=== PATIENT | male | born 1970 | race Caucasian/White ===

== ENCOUNTER 2017-04-14 02:20 | Observation (INO) | payer MEDICARE, MEDICAID ==
--- NOTE | 2017-04-14 03:35 | EDM.PDOC ---
ED HPI GENERAL MEDICAL PROBLEM - General Chief Complaint: General Stated Complaint: loss of conciousness Time Seen by Provider: 04/14/17 03:00 Source of Information: Reports: Patient, Family - History of Present Illness INITIAL COMMENTS - FREE TEXT/NARRATIVE: This is a 47yo M with history of severe CHF, severe pulmonary HTN, Renal dysfunction, and multiple other health issues here for recent episodes of syncope. His last episode he fell while going to the bathroom and does not recall falling. He was brought in via EMS as he had difficulty standing on his own and was confused. states he has been progressively worse and weaker. He does use his walker 90% of the time. Patient unable to stand on his own two feet after the fall today. Onset: Gradual Duration: Getting Worse Location: Reports: Generalized Severity: Moderate Improves with: Reports: None Worsens with: Reports: None Associated Symptoms: Reports: Weakness Generalized Pain Score (Numeric/FACES): 0 - Related Data Allergies Allergy/AdvReac Type Severity Reaction Status Date / Time No Known Allergies Allergy Verified 04/14/17 04:04 Home Meds: Home Meds Albuterol [Ventolin HFA] 1 puff .XX Q4H PRN 04/14/17 [History] Allopurinol [Zyloprim] 100 mg PO BID 04/14/17 [History] Benzonatate 100 mg PO TID 04/14/17 [History] Bisacodyl [Dulcolax] 5 mg PO DAILY PRN 04/14/17 [History] Cyanocobalamin (Vitamin B-12) [B-12] 1,000 mcg PO DAILY 04/14/17 [History] Ferrous Sulfate [Iron] 325 mg PO BID 04/14/17 [History] Fluticasone/Salmeterol [Advair 250-50 Diskus] 2 inh PO BID 04/14/17 [History] Gabapentin [Neurontin] 300 mg PO DAILY 04/14/17 [History] Hydrocodone/Acetaminophen [Hydrocodon-Acetaminophen 5-325] 1 tab PO Q4H PRN 06/21 [History] Ipratropium/Albuterol Sulfate [Iprat-Albut 0.5-3(2.5) mg/3 ml] 3 ml IH Q6H PRN 04/14/17 [History] Melatonin 6 mg PO BEDTIME 04/14/17 [History] Metolazone 5 mg PO .MON .FRI 04/14/17 [History] Midodrine 15 mg PO TIDAC 04/14/17 [History] Pantoprazole Sodium 40 mg PO DAILY 04/14/17 [History] Potassium Chloride [K-Tab] 40 meq PO TID 04/14/17 [History] Selexipag [Uptravi] 1,000 mcg PO BEDTIME 04/14/17 [History] Selexipag [Uptravi] 800 mcg PO ACBREAKFAST 04/14/17 [History] Sertraline HCl 12.5 mg PO DAILY 04/14/17 [History] Sildenafil [Revatio] 40 mg PO TID 04/14/17 [History] Torsemide 100 mg PO BID 04/14/17 [History] Warfarin [Coumadin] 2 mg PO DAILY 04/14/17 [History] atorvaSTATin Calcium [Atorvastatin Calcium] 40 mg PO DAILY 04/14/17 [History] traMADol HCl [Tramadol HCl] 50 mg PO BID PRN 04/14/17 [History] ED ROS GENERAL - Review of Systems Review Of Systems: ROS reveals no pertinent complaints other than HPI. ED EXAM, GENERAL - Physical Exam Exam: See Below Exam Limited By: No Limitations General Appearance: No Apparent Distress, Obtunded, Thin Eye Exam: Bilateral Eye: EOMI, PERRL Ears: Normal External Exam Nose: Normal Inspection Throat/Mouth: Normal Inspection Head: Atraumatic, Normocephalic Neck: Normal Inspection Respiratory/Chest: No Respiratory Distress, Lungs Clear, Normal Breath Sounds Cardiovascular: Systolic Murmur, Irregularly Irregular Peripheral Pulses: 4+: Posterior Tibial (L), Posterior Tibial (R), Dorsalis Pedis (L), Dorsalis Pedis (R) GI/Abdominal: Normal Bowel Sounds Extremities: Pedal Edema Neurological: Alert, Oriented, Inattentive Psychiatric: Flat Affect Skin Exam: Warm, Dry, Intact Course - Vital Signs Last Recorded V/S: Last Vital Signs Temp 37.1 C 04/14/17 08:19 Pulse 88 04/14/17 08:19 Resp 18 04/14/17 08:19 BP 88/56 L 04/14/17 08:19 Pulse Ox 97 04/14/17 08:19 - Orders/Labs/Meds Orders: Active Orders 24 hr Category Date Time Status Patient Status [ADT] Routine ADT 04/14/17 04:21 Active EKG Documentation Completion [RC] ASDIRECTED Care 04/14/17 03:52 Active Height and Weight [RC] DAILY Care 04/14/17 04:21 Active Intake and Output [RC] Q12H Care 04/14/17 04:23 Active Oxygen Therapy [RC] Q12H Care 04/14/17 04:21 Active Telemetry Monitoring [Cardiac Monitoring] [RC] Q12H Care 04/14/17 04:23 Active Vital Signs [RC] Q4H Care 04/14/17 04:21 Active Heart Healthy Diet [DIET] Diet 04/14/17 Breakfast Ordered C3,C4 [REF] Stat Lab 04/14/17 03:25 Received Dextrose 5%-0.9% NaCl [Dextrose 5%-Normal Saline] 1,000 Med 04/14/17 04:15 Active ml IV ASDIRECTED Lactulose [Chronulac] Med 04/14/17 05:00 Active 10 gm PO BID MVI, Adult with Vitamin K [Infuvite Adult] 10 ml Med 04/14/17 08:30 Active Thiamine [Vitamin B-1] 100 mg Folic Acid 1 mg Magnesium Sulfate [Magnesium Sulfate 50%] 3 gm Sodium Chloride 0.9% [Normal Saline] 1,000 ml IV ASDIRECTED Sodium Chloride 0.9% [Normal Saline] 1,000 ml Med 04/14/17 04:00 Active IV ASDIRECTED Code Status [Resuscitation Status] Stat Resus Stat 04/14/17 04:23 Ordered EKG 12 Lead [EK] Routine Ther 04/14/17 03:10 Ordered Medication Orders Hydrocodone Bitart/Acetaminophen ([place] 325-5 Mg) 1 tab PO Q4H PRN PRN Reason: Pain Albuterol (Ventolin Hfa) gm INH Q4H PRN PRN Reason: Shortness of Breath Albuterol/Ipratropium (Duoneb 3.0-0.5 Mg/3 Ml) 3 ml INH Q6H PRN PRN Reason: Shortness of Breath Allopurinol (Zyloprim) 100 mg PO BID DENISSE Atorvastatin Calcium (Lipitor) 40 mg PO BEDTIME DENISSE Benzonatate (Tessalon Perles) 100 mg PO TID DENISSE Cyanocobalamin (Vitamin B12) 1,000 mcg PO DAILY DENISSE Ferrous Sulfate (Ferrous Sulfate) 325 mg PO BID DENISSE Gabapentin (Neurontin) 600 mg PO BEDTIME DENISSE Sodium Chloride (Normal Saline) 1,000 mls @ 999 mls/hr IV ASDIRECTED DENISSE Last Admin: 04/14/17 03:54 Dose: 999 mls/hr Dextrose/Sodium Chloride (Dextrose 5%-Normal Saline) 1,000 mls @ 75 mls/hr IV ASDIRECTED DENISSE Last Admin: 04/14/17 05:09 Dose: 75 mls/hr Multivitamins/Minerals 10 ml/Thiamine HCl 100 mg/ Folic Acid 1 mg/ Magnesium Sulfate 3 gm/ Sodium Chloride 1,017.2 mls @ 75 mls/hr IV ASDIRECTED COUNT INCLUDES THE [facility] Last Admin: 04/14/17 09:50 Dose: 75 mls/hr Lactulose (Chronulac) 10 gm PO BID DENISSE Last Admin: 04/14/17 08:15 Dose: 10 gm Admin: 04/14/17 05:04 Dose: 10 gm Melatonin (Melatonin) 6 mg PO BEDTIME DENISSE Metolazone (Zaroxolyn) 5 mg PO .MON .FRI DENISSE (Midodrine [ (Midodrine] 15 Mg)) 15 mg PO TIDAC DENISSE (Torsemide [ (Torsemide] 100 Mg)) 100 mg PO BID COUNT INCLUDES THE [facility] Non-Formulary Medication (Nf Drug) 1 each INH QID COUNT INCLUDES THE [facility] Pantoprazole Sodium (Protonix) 40 mg PO BID COUNT INCLUDES THE [facility] Potassium Chloride (Klor-Con 10) 40 meq PO TID COUNT INCLUDES THE [facility] Quetiapine Fumarate (Seroquel) 12.5 mg PO BEDTIME COUNT INCLUDES THE [facility] Fluticasone/Salmeterol (Advair Diskus 250-50) 2 puff INH BID PRN PRN Reason: Shortness of Breath Sertraline HCl (Zoloft) 12.5 mg PO BEDTIME COUNT INCLUDES THE [facility] Sildenafil Citrate (Revatio) 40 mg PO TID COUNT INCLUDES THE [facility] Tramadol HCl (Ultram) 50 mg PO BID PRN PRN Reason: Pain Warfarin Sodium (Coumadin) 2 mg PO DAILY@1600 COUNT INCLUDES THE [facility] Labs: Laboratory Tests 04/14/17 04/14/17 04/14/17 Range/Units 03:25 03:25 03:25 WBC 2.5 L (4.0-11.0) K/uL RBC 2.92 L (4.50-6.50) M/uL Hgb 9.0 L (13.0-18.0) g/dL Hct 27.1 L (40.0-54.0) % MCV 93 (76-96) fL MCH 30.8 (27.0-32.0) pg MCHC 33.2 (31.0-35.0) g/dL RDW 21.0 H (11.0-16.0) % Plt Count 106 L (150-400) K/uL MPV 10.9 H (6.0-10.0) fL Neut % (Auto) 61.6 (45.0-70.0) % Lymph % (Auto) 20.8 (20.0-40.0) % [place] % (Auto) 12.4 H (3.0-10.0) % Eos % (Auto) 4.4 (1.0-5.0) % Baso % (Auto) 0.8 H (0.0-0.5) % Neut # (Auto) 1.54 L (2.00-7.50) K/uL Lymph # (Auto) 0.52 L (1.50-4.00) K/uL [place] # (Auto) 0.31 (0.20-0.80) K/uL Eos # (Auto) 0.11 (0.04-0.40) K/uL Baso # (Auto) 0.02 (0.02-0.10) K/uL PT (9.0-11.5) sec INR (1.0-3.5) VBG pH (7.31-7.41) Sodium 136 (136-145) mmol/L Potassium 3.7 D (3.5-5.1) mmol/L Chloride 99 (98-107) mmol/L Carbon Dioxide 28.5 (21.0-32.0) mmol/L Anion Gap 12.2 (5.0-15.0) mmol/L BUN 60 H* D (8-26) mg/dL Creatinine 2.52 H (0.70-1.30) mg/dL Est Cr Clr Drug Dosing TNP Estimated GFR (MDRD) 28 L (>60) MLS/MIN BUN/Creatinine Ratio 23.8 (6-25) Glucose 99 (74-100) mg/dL Uric Acid (2.6-7.2) mg/dL Calcium 8.2 L (8.5-10.1) mg/dL Total Bilirubin 1.4 H (0.0-1.0) mg/dL AST 19 (15-37) U/L ALT 11 L (12-78) U/L Alkaline Phosphatase 330 H (46-116) U/L Ammonia (11-32) umol/L Troponin I 0.044 D (0.000-0.060) ng/mL C-Reactive Protein 3.6 H (0.0-3.0) mg/L B-Natriuretic Peptide 90812 H (0-125) pg/mL Total Protein 6.8 (6.4-8.2) g/dL Albumin 2.9 L (3.4-5.0) g/dL Globulin 3.9 (2.2-4.2) g/dL Albumin/Globulin Ratio 0.7 L (0.8-2.0) 04/14/17 04/14/17 04/14/17 Range/Units 03:25 03:25 03:27 WBC (4.0-11.0) K/uL RBC (4.50-6.50) M/uL Hgb (13.0-18.0) g/dL Hct (40.0-54.0) % MCV (76-96) fL MCH (27.0-32.0) pg MCHC (31.0-35.0) g/dL RDW (11.0-16.0) % Plt Count (150-400) K/uL MPV (6.0-10.0) fL Neut % (Auto) (45.0-70.0) % Lymph % (Auto) (20.0-40.0) % [place] % (Auto) (3.0-10.0) % Eos % (Auto) (1.0-5.0) % Baso % (Auto) (0.0-0.5) % Neut # (Auto) (2.00-7.50) K/uL Lymph # (Auto) (1.50-4.00) K/uL [place] # (Auto) (0.20-0.80) K/uL Eos # (Auto) (0.04-0.40) K/uL Baso # (Auto) (0.02-0.10) K/uL PT 36.4 H (9.0-11.5) sec INR 3.9 H (1.0-3.5) VBG pH 7.39 (7.31-7.41) Sodium (136-145) mmol/L Potassium (3.5-5.1) mmol/L Chloride (98-107) mmol/L Carbon Dioxide (21.0-32.0) mmol/L Anion Gap (5.0-15.0) mmol/L BUN (8-26) mg/dL Creatinine (0.70-1.30) mg/dL Est Cr Clr Drug Dosing Estimated GFR (MDRD) (>60) MLS/MIN BUN/Creatinine Ratio (6-25) Glucose (74-100) mg/dL Uric Acid 9.3 H (2.6-7.2) mg/dL Calcium (8.5-10.1) mg/dL Total Bilirubin (0.0-1.0) mg/dL AST (15-37) U/L ALT (12-78) U/L Alkaline Phosphatase (46-116) U/L Ammonia (11-32) umol/L Troponin I (0.000-0.060) ng/mL C-Reactive Protein (0.0-3.0) mg/L B-Natriuretic Peptide (0-125) pg/mL Total Protein (6.4-8.2) g/dL Albumin (3.4-5.0) g/dL Globulin (2.2-4.2) g/dL Albumin/Globulin Ratio (0.8-2.0) 04/14/17 Range/Units 03:32 WBC (4.0-11.0) K/uL RBC (4.50-6.50) M/uL Hgb (13.0-18.0) g/dL Hct (40.0-54.0) % MCV (76-96) fL MCH (27.0-32.0) pg MCHC (31.0-35.0) g/dL RDW (11.0-16.0) % Plt Count (150-400) K/uL MPV (6.0-10.0) fL Neut % (Auto) (45.0-70.0) % Lymph % (Auto) (20.0-40.0) % [place] % (Auto) (3.0-10.0) % Eos % (Auto) (1.0-5.0) % Baso % (Auto) (0.0-0.5) % Neut # (Auto) (2.00-7.50) K/uL Lymph # (Auto) (1.50-4.00) K/uL [place] # (Auto) (0.20-0.80) K/uL Eos # (Auto) (0.04-0.40) K/uL Baso # (Auto) (0.02-0.10) K/uL PT (9.0-11.5) sec INR (1.0-3.5) VBG pH (7.31-7.41) Sodium (136-145) mmol/L Potassium (3.5-5.1) mmol/L Chloride (98-107) mmol/L Carbon Dioxide (21.0-32.0) mmol/L Anion Gap (5.0-15.0) mmol/L BUN (8-26) mg/dL Creatinine (0.70-1.30) mg/dL Est Cr Clr Drug Dosing Estimated GFR (MDRD) (>60) MLS/MIN BUN/Creatinine Ratio (6-25) Glucose (74-100) mg/dL Uric Acid (2.6-7.2) mg/dL Calcium (8.5-10.1) mg/dL Total Bilirubin (0.0-1.0) mg/dL AST (15-37) U/L ALT (12-78) U/L Alkaline Phosphatase (46-116) U/L Ammonia 109 H (11-32) umol/L Troponin I (0.000-0.060) ng/mL C-Reactive Protein (0.0-3.0) mg/L B-Natriuretic Peptide (0-125) pg/mL Total Protein (6.4-8.2) g/dL Albumin (3.4-5.0) g/dL Globulin (2.2-4.2) g/dL Albumin/Globulin Ratio (0.8-2.0) Meds: Medications Generic Name Dose Route Start Last Admin Trade Name Freq PRN Reason Stop Dose Admin Hydrocodone Bitart/Acetaminophen 1 tab 04/14/17 08:27 [place] 325-5 Mg PO Q4H PRN Pain Albuterol gm 04/14/17 08:27 Ventolin Hfa INH Q4H PRN Shortness of Breath Albuterol/Ipratropium 3 ml 04/14/17 08:27 Duoneb 3.0-0.5 Mg/3 Ml INH Q6H PRN Shortness of Breath Allopurinol 100 mg 04/14/17 08:30 Zyloprim PO BID COUNT INCLUDES THE [facility] Atorvastatin Calcium 40 mg 04/14/17 20:00 Lipitor PO BEDTIME DENISSE Benzonatate 100 mg 04/14/17 14:00 Tessalon Perles PO TID COUNT INCLUDES THE [facility] Cyanocobalamin 1,000 mcg 04/14/17 08:30 Vitamin B12 PO DAILY COUNT INCLUDES THE [facility] Ferrous Sulfate 325 mg 04/14/17 08:30 Ferrous Sulfate PO BID COUNT INCLUDES THE [facility] Gabapentin 600 mg 04/14/17 20:00 Neurontin PO BEDTIME DENISSE Sodium Chloride 1,000 mls @ 999 mls/hr 04/14/17 04:00 04/14/17 03:54 Normal Saline IV 999 mls/hr ASDIRECTED DENISSE Administration Dextrose/Sodium Chloride 1,000 mls @ 75 mls/hr 04/14/17 04:15 04/14/17 05:09 Dextrose 5%-Normal Saline IV 75 mls/hr ASDIRECTED DENISSE Administration Multivitamins/Minerals 10 ml/ 1,017.2 mls @ 75 mls/hr 04/14/17 08:30 09:50 Thiamine HCl 100 mg/ Folic IV 75 mls/hr Acid 1 mg/ Magnesium Sulfate 3 ASDIRECTED DENISSE Administration gm/ Sodium Chloride Lactulose 10 gm 04/14/17 05:00 04/14/17 08:15 Chronulac PO 10 gm BID DENISSE Administration Melatonin 6 mg 04/14/17 20:00 Melatonin PO BEDTIME DENISSE Metolazone 5 mg 04/14/17 08:30 Zaroxolyn PO .MON .FRI DENISSE (Midodrine [ 15 mg 04/14/17 11:00 Midodrine] 15 Mg) PO TIDAC DENISSE (Torsemide [ 100 mg 04/14/17 08:30 Torsemide] 100 Mg) PO BID COUNT INCLUDES THE [facility] Non-Formulary Medication 1 each 04/14/17 12:00 Nf Drug INH QID COUNT INCLUDES THE [facility] Pantoprazole Sodium 40 mg 04/14/17 08:30 Protonix PO BID COUNT INCLUDES THE [facility] Potassium Chloride 40 meq 04/14/17 14:00 Klor-Con 10 PO TID COUNT INCLUDES THE [facility] Quetiapine Fumarate 12.5 mg 04/14/17 20:00 Seroquel PO BEDTIME COUNT INCLUDES THE [facility] Fluticasone/Salmeterol 2 puff 04/14/17 08:27 Advair Diskus 250-50 INH BID PRN Shortness of Breath Sertraline HCl 12.5 mg 04/14/17 20:00 Zoloft PO BEDTIME COUNT INCLUDES THE [facility] Sildenafil Citrate 40 mg 04/14/17 14:00 Revatio PO TID COUNT INCLUDES THE [facility] Tramadol HCl 50 mg 04/14/17 08:27 Ultram PO BID PRN Pain Warfarin Sodium 2 mg 04/14/17 16:00 Coumadin PO DAILY@1600 DENISSE Departure - Departure Time of Disposition: 03:45 Disposition: Refer to Observation Clinical Impression: Pulmonary HTN, Syncope and collapse CHF (congestive heart failure) Qualifiers: Congestive heart failure type: combined Congestive heart failure chronicity: chronic Qualified Code(s): I50.42 - Chronic combined systolic (congestive) and diastolic (congestive) heart failure Renal failure Qualifiers: Renal failure chronicity: chronic Chronic kidney disease stage: stage 4 (severe ) Qualified Code(s): N18.4 - Chronic kidney disease, stage 4 (severe) - Discharge Information - Problem List & Annotations (1) Atrial fibrillation SNOMED Code(s): 49765633 Code(s): I48.91 - UNSPECIFIED ATRIAL FIBRILLATION Status: Acute Current Visit: Yes - Problem List Review Problem List Initiated/Reviewed/Updated: Yes - My Orders Last 24 Hours: My Active Orders 04/14/17 03:10 EKG 12 Lead [EK] Routine 04/14/17 03:25 C3,C4 [REF] Stat 04/14/17 03:52 EKG Documentation Completion [RC] ASDIRECTED 04/14/17 04:00 Sodium Chloride 0.9% [Normal Saline] 1,000 ml IV ASDIRECTED 04/14/17 04:15 Dextrose 5%-0.9% NaCl [Dextrose 5%-Normal Saline] 1,000 ml IV ASDIRECTED 04/14/17 04:21 Patient Status [ADT] Routine Height and Weight [RC] DAILY Oxygen Therapy [RC] Q12H Vital Signs [RC] Q4H 04/14/17 04:23 Intake and Output [RC] Q12H Telemetry Monitoring [Cardiac Monitoring] [RC] Q12H Code Status [Resuscitation Status] Stat 04/14/17 05:00 Lactulose [Chronulac] 10 gm PO BID 04/14/17 08:30 MVI, Adult with Vitamin K [Infuvite Adult] 10 ml Thiamine [Vitamin B-1] 100 mg Folic Acid 1 mg Magnesium Sulfate [Magnesium Sulfate 50%] 3 gm Sodium Chloride 0.9% [Normal Saline] 1,000 ml IV ASDIRECTED 04/14/17 Breakfast Heart Healthy Diet [DIET] - Assessment/Plan Last 24 Hours: My Active Orders 04/14/17 03:10 EKG 12 Lead [EK] Routine 04/14/17 03:25 C3,C4 [REF] Stat 04/14/17 03:52 EKG Documentation Completion [RC] ASDIRECTED 04/14/17 04:00 Sodium Chloride 0.9% [Normal Saline] 1,000 ml IV ASDIRECTED 04/14/17 04:15 Dextrose 5%-0.9% NaCl [Dextrose 5%-Normal Saline] 1,000 ml IV ASDIRECTED 04/14/17 04:21 Patient Status [ADT] Routine Height and Weight [RC] DAILY Oxygen Therapy [RC] Q12H Vital Signs [RC] Q4H 04/14/17 04:23 Intake and Output [RC] Q12H Telemetry Monitoring [Cardiac Monitoring] [RC] Q12H Code Status [Resuscitation Status] Stat 04/14/17 05:00 Lactulose [Chronulac] 10 gm PO BID 04/14/17 08:30 MVI, Adult with Vitamin K [Infuvite Adult] 10 ml Thiamine [Vitamin B-1] 100 mg Folic Acid 1 mg Magnesium Sulfate [Magnesium Sulfate 50%] 3 gm Sodium Chloride 0.9% [Normal Saline] 1,000 ml IV ASDIRECTED 04/14/17 Breakfast Heart Healthy Diet [DIET] Plan: Patient placed on telemetry and will be placed in observation. We will continue with very gentle hydration as it appears the small 250-500cc bolus may have resolved his atrial fibrillation. Patient's has his medications and we will reconcile meds with . Repeat labs in afternoon if required and next am as needed. Patient appears comfortable and resting with good vitals. Discussed labs with and patient.
[2017-04-14] MEDS ORDERED: Sodium Chloride 0.9% 1,000 ML IV SCH (04:00)
[2017-04-14] MEDS ORDERED: Dextrose 5%-0.9% NaCl 1,000 ML IV SCH (04:15)
[2017-04-14] MEDS: Lactulose Soln 10 GM/15 ML 15 ML UD Cup PO SCH ×2 (05:04→08:15)
[2017-04-14] MEDS ORDERED: Allopurinol 100 MG Tab PO SCH (08:00)
[2017-04-14 08:21] VITALS: BP 88/56
[2017-04-14] MEDS ORDERED: Fluticasone/Salmeterol 250-50 MCG Inhalation Powder 14/Diskus INH PRN (08:27)
[2017-04-14] MEDS ORDERED: Albuterol 8 GM Inhaler INH PRN (08:27)
[2017-04-14] MEDS ORDERED: traMADol 50 MG Tab PO PRN (08:27)
[2017-04-14] MEDS ORDERED: Albuterol/Ipratropium 3.0-0.5 MG/3 ML Neb Soln INH PRN (08:27)
[2017-04-14] MEDS ORDERED: Acetaminophen/HYDROcodone 325-5 MG Tab PO PRN (08:27)
[2017-04-14] MEDS ORDERED: MVI, Adult with Vitamin K 10 ML, Thiamine 100 MG, Folic Acid 1 MG, Magnesium Sulfate 3 ... IV SCH ×5 (08:30)
[2017-04-14] MEDS ORDERED: Ferrous Sulfate 325 MG Tab PO SCH (08:30)
[2017-04-14] MEDS ORDERED: Cyanocobalamin (Vitamin B12) 1,000 MCG Tab PO SCH (08:30)
[2017-04-14] MEDS ORDERED: Pantoprazole 40 MG Tab.CR PO SCH (08:30)
[2017-04-14] MEDS: TYVASO INH SCH ×2 (10:30→13:56)
[2017-04-14] MEDS ORDERED: Potassium Chloride 10 MEQ Tab.ER PO SCH (14:00)
[2017-04-14] MEDS ORDERED: Benzonatate 100 MG Cap PO PRN (14:00)
[2017-04-14] MEDS ORDERED: Sildenafil 20 MG Tab PO SCH (14:00)
--- NOTE | 2017-04-14 15:59 | PCM.DCSUM1 ---
Discharge Summary - Discharge Data Discharge Date: 04/14/17 Discharge Disposition: Home, Self-Care 01 Condition: Good - Discharge Diagnosis/Problem(s) (1) Atrial fibrillation SNOMED Code(s): 29453469 ICD Code: I48.91 - UNSPECIFIED ATRIAL FIBRILLATION Status: Resolved Current Visit: Yes - Patient Instructions Diet: Heart Healthy Diet Activity: Bedrest Driving: Do Not Drive - Discharge Plan Home Medications: Home Meds Albuterol [Ventolin HFA] 1 puff .XX Q4H PRN 04/14/17 [History] Allopurinol [Zyloprim] 100 mg PO BID 04/14/17 [History] Benzonatate 100 mg PO TID 04/14/17 [History] Bisacodyl [Dulcolax] 5 mg PO DAILY PRN 04/14/17 [History] Cyanocobalamin (Vitamin B-12) [B-12] 1,000 mcg PO DAILY 04/14/17 [History] Ferrous Sulfate [Iron] 325 mg PO BID 04/14/17 [History] Fluticasone/Salmeterol [Advair 250-50 Diskus] 2 inh PO BID 04/14/17 [History] Gabapentin [Neurontin] 300 mg PO DAILY 04/14/17 [History] Hydrocodone/Acetaminophen [Hydrocodon-Acetaminophen 5-325] 1 tab PO Q4H PRN 06/21 [History] Ipratropium/Albuterol Sulfate [Iprat-Albut 0.5-3(2.5) mg/3 ml] 3 ml IH Q6H PRN 04/14/17 [History] Melatonin 6 mg PO BEDTIME 04/14/17 [History] Metolazone 5 mg PO .MON .FRI 04/14/17 [History] Midodrine 15 mg PO TIDAC 04/14/17 [History] Pantoprazole Sodium 40 mg PO DAILY 04/14/17 [History] Potassium Chloride [K-Tab] 40 meq PO TID 04/14/17 [History] Selexipag [Uptravi] 1,000 mcg PO BEDTIME 04/14/17 [History] Selexipag [Uptravi] 800 mcg PO ACBREAKFAST 04/14/17 [History] Sertraline HCl 12.5 mg PO DAILY 04/14/17 [History] Sildenafil [Revatio] 40 mg PO TID 04/14/17 [History] Torsemide 100 mg PO BID 04/14/17 [History] Warfarin [Coumadin] 2 mg PO DAILY 04/14/17 [History] atorvaSTATin Calcium [Atorvastatin Calcium] 40 mg PO DAILY 04/14/17 [History] traMADol HCl [Tramadol HCl] 50 mg PO BID PRN 04/14/17 [History] Patient Handouts: Syncope, [id number] Forms: ED Department Discharge Referrals: PCP,None [Primary Care Provider] - - Discharge Summary/Plan Comment DC Time >30 min.: Yes Discharge Summary/Plan Comment: Counseled patient on close monitoring. He states he feels better and is adamant on going home. Discussed f/u with [facility] and medication compliance. Patient acknowledges he will follow his current management plans and meds. Counseled on plan of care and follow up. Discussed close monitoring and f/u in ER or clinic as discussed. No changes to meds. - Patient Data Vitals - Most Recent: Last Vital Signs Temp 37.1 C 04/14/17 08:19 Pulse 88 04/14/17 08:19 Resp 18 04/14/17 08:19 BP 88/56 L 04/14/17 08:19 Pulse Ox 97 04/14/17 08:19 Weight - Most Recent: 80.739 kg I&O - Last 24 hours: Intake & Output 04/14/17 04/14/17 04/14/17 06:59 14:59 22:59 Output Total 1275 Balance -1275 Lab Results - Last 24 hrs: Laboratory Results - last 24 hr 04/14/17 Range/Units Unknown Urine Color Yellow Urine Appearance Clear (CLEAR) Urine pH 6.0 (5.0-8.0) Ur Specific [place] 1.010 (1.003-1.030) Urine Protein Negative (NEGATIVE) mg/dL Urine Glucose (UA) Negative (NEGATIVE) mg/dL Urine Ketones Negative (NEGATIVE) mg/dL Urine Occult Blood Negative (NEGATIVE) Urine Nitrite Negative (NEGATIVE) Urine Bilirubin Negative (NEGATIVE) Urine Urobilinogen 0.2 (0.2-1.0) E.U./dL Ur Leukocyte Esterase Negative (NEGATIVE) Urine RBC Not seen /HPF Urine WBC Not seen /HPF Med Orders - Current: Current Medications Hydrocodone Bitart/Acetaminophen ([place] 325-5 Mg) 1 tab PO Q4H PRN PRN Reason: Pain Albuterol (Ventolin Hfa) 8 gm INH Q4H PRN PRN Reason: Shortness of Breath Albuterol/Ipratropium (Duoneb 3.0-0.5 Mg/3 Ml) 3 ml INH Q6H PRN PRN Reason: Shortness of Breath Allopurinol (Zyloprim) 100 mg PO DAILY [facility] Last Admin: 04/14/17 13:23 Dose: Not Given Atorvastatin Calcium (Lipitor) 40 mg PO BEDTIME [facility] Benzonatate (Tessalon Perles) 100 mg PO TID PRN PRN Reason: COUGH Cyanocobalamin (Vitamin B12) 1,000 mcg PO DAILY [facility] Ferrous Sulfate (Ferrous Sulfate) 325 mg PO BID [facility] Folic Acid (Folic Acid) 1 mg PO DAILY [facility] Gabapentin (Neurontin) 600 mg PO BEDTIME [facility] Sodium Chloride (Normal Saline) 1,000 mls @ 999 mls/hr IV ASDIRECTED [facility] Last Admin: 04/14/17 03:54 Dose: 999 mls/hr Dextrose/Sodium Chloride (Dextrose 5%-Normal Saline) 1,000 mls @ 75 mls/hr IV ASDIRECTED [facility] Last Admin: 04/14/17 05:09 Dose: 75 mls/hr Multivitamins/Minerals 10 ml/Thiamine HCl 100 mg/ Folic Acid 1 mg/ Magnesium Sulfate 3 gm/ Sodium Chloride 1,017.2 mls @ 75 mls/hr IV ASDIRECTED [facility] Last Admin: 04/14/17 09:50 Dose: 75 mls/hr Lactulose (Chronulac) 10 gm PO BID [facility] Last Admin: 04/14/17 08:15 Dose: 10 gm Melatonin (Melatonin) 6 mg PO BEDTIME [facility] Metolazone (Zaroxolyn) 5 mg PO MoFr [facility] (Midodrine [ (Midodrine] 15 Mg)) 15 mg PO TIDAC [facility] Last Admin: 04/14/17 13:23 Dose: Not Given (Torsemide [ (Torsemide] 100 Mg)) 100 mg PO BID [facility] Last Admin: 04/14/17 13:23 Dose: Not Given Tyvaso 1 each INH QID [facility] Last Admin: 04/14/17 13:56 Dose: Not Given Pantoprazole Sodium (Protonix) 40 mg PO BID [facility] Potassium Chloride (Klor-Con 10) 40 meq PO TID [facility] Quetiapine Fumarate (Seroquel) 12.5 mg PO BEDTIME [facility] Fluticasone/Salmeterol (Advair Diskus 250-50) 2 puff INH BID PRN PRN Reason: Shortness of Breath Sertraline HCl (Zoloft) 12.5 mg PO BEDTIME [facility] Sildenafil Citrate (Revatio) 40 mg PO TID [facility] Tramadol HCl (Ultram) 50 mg PO BID PRN PRN Reason: Pain Warfarin Sodium (Coumadin) 2 mg PO DAILY@1600 [facility] *Q Meaningful Use (DIS) - VTE *Q VTE Criteria *Q: - Stroke *Q Stroke Criteria *Q: - AMI *Q AMI Criteria *Q:
[2017-04-14] MEDS ORDERED: Warfarin 2 MG Tab PO SCH (16:00)
[2017-04-14] MEDS ORDERED: QUEtiapine 25 MG Tab PO SCH (20:00)
[2017-04-14] MEDS ORDERED: atorvaSTATin 40 MG Tab PO SCH (20:00)
[2017-04-14] MEDS ORDERED: Gabapentin 300 MG Cap PO SCH (20:00)
[2017-04-14] MEDS ORDERED: Sertraline 25 MG Tab PO SCH (20:00)
[2017-04-14] MEDS ORDERED: Melatonin 3 MG Tab PO SCH (20:00)
[2017-04-15] MEDS ORDERED: Folic Acid 1 MG Tab PO SCH (08:00)
[2017-04-15] MEDS ORDERED: Metolazone 5 MG Tab PO SCH (11:02)
== END 2017-04-14 15:32 | disposition home or self-care (01) ==
LOC: LB.ED 02:20 → LB.MS 04:48
PROVIDERS: ADMIT Family Medicine; ATTEND Family Medicine
DX: I48.91 Unspecified atrial fibrillation (principal); Z79.899 Other long term (current) drug therapy; Z79.01 Long term (current) use of anticoagulants; I50.42 Chronic combined systolic (congestive) and diastolic (congestive) heart failure
CPT/HCPCS: 36415; 80053; 81001; 82140; 82800; 83880; 84484; 84550; 85025; 85610; 86140; 86160; 86628; 93005; 96361; 96374; 99236; 99285; A0425; A0429; A9270; G0378; J3411; J3475; J7040; J3490

== ENCOUNTER 2017-04-22 01:12 | Emergency (ER) | payer MEDICARE, MEDICAID ==
[2017-04-22 02:52] VITALS: BP 98/59
--- NOTE | 2017-04-22 11:24 | EDM.PDOC ---
ED HPI GENERAL MEDICAL PROBLEM - General Chief Complaint: Syncope Stated Complaint: SYNCOPAL EPISODE Time Seen by Provider: 04/22/17 02:25 Source of Information: Reports: Patient, Family History Limitations: Reports: No Limitations - History of Present Illness INITIAL COMMENTS - FREE TEXT/NARRATIVE: This is a 47yo M who fell and hit his left forehead above the eye brow on the fridge edge and made a 90 degree laceration length of 4.3cm. Patient denies any loss of consciousness but did feel lightheaded afterwards. 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 - Related Data Allergies Allergy/AdvReac Type Severity Reaction Status Date / Time heparin AdvReac Other Verified 04/22/17 03:43 Home Meds: Home Meds Albuterol [Ventolin HFA] 1 puff .XX Q4H PRN 04/14/17 [History] Allopurinol [Zyloprim] 100 mg PO BID 04/14/17 [History] Benzonatate 100 mg PO TID 04/14/17 [History] Bisacodyl [Dulcolax] 5 mg PO DAILY PRN 04/14/17 [History] Cyanocobalamin (Vitamin B-12) [B-12] 1,000 mcg PO DAILY 04/14/17 [History] Ferrous Sulfate [Iron] 325 mg PO BID 04/14/17 [History] Fluticasone/Salmeterol [Advair 250-50 Diskus] 2 inh PO BID 04/14/17 [History] Gabapentin [Neurontin] 300 mg PO DAILY 04/14/17 [History] Hydrocodone/Acetaminophen [Hydrocodon-Acetaminophen 5-325] 1 tab PO Q4H PRN 06/21 [History] Ipratropium/Albuterol Sulfate [Iprat-Albut 0.5-3(2.5) mg/3 ml] 3 ml IH Q6H PRN 04/14/17 [History] Melatonin 6 mg PO BEDTIME 04/14/17 [History] Metolazone 5 mg PO .MON .FRI 04/14/17 [History] Midodrine 15 mg PO TIDAC 04/14/17 [History] Pantoprazole Sodium 40 mg PO DAILY 04/14/17 [History] Potassium Chloride [K-Tab] 40 meq PO TID 04/14/17 [History] Torsemide 100 mg PO BID 04/14/17 [History] Warfarin [Coumadin] 2 mg PO DAILY 04/14/17 [History] atorvaSTATin Calcium [Atorvastatin Calcium] 40 mg PO DAILY 04/14/17 [History] traMADol HCl [Tramadol HCl] 50 mg PO BID PRN 04/14/17 [History] Sertraline [Zoloft] 12.5 mg PO DAILY 04/22/17 [History] Sildenafil [Revatio] 60 mg PO TID 04/22/17 [History] Past Medical History Cardiovascular History: Reports: Heart Failure, Hypertension, Prior Cardiac Arrest, SOB on Exertion Respiratory History: Reports: Asthma, COPD, Other (See Below) Other Respiratory History: Hx of thrombolectomy in [place] Genitourinary History: Reports: Chronic Renal Insuffiency Musculoskeletal History: Reports: Arthritis Psychiatric History: Reports: Depression Hematologic History: Reports: Bleeding Disorder, Iron Deficiency Immunologic History: Reports: Other (See Below) Other Immunologic History: Lupus Dermatologic History: Reports: Urticaria - Infectious Disease History Infectious Disease History: Reports: Chicken Pox Social & Family History - Family History Family Medical History: Unobtainable - Tobacco Use Smoking Status *Q: Former Smoker Years of Tobacco use: 20 Packs/Tins Daily: 1 Used Tobacco, but Quit: No Second Hand Smoke Exposure: No - Caffeine Use Caffeine Use: Reports: Soda - Recreational Drug Use Recreational Drug Use: No ED ROS GENERAL - Review of Systems Review Of Systems: ROS reveals no pertinent complaints other than HPI. ED EXAM, SKIN/RASH Exam: See Below Exam Limited By: No Limitations General Appearance: Alert, WD/WN, No Apparent Distress Eye Exam: Bilateral Eye: EOMI, PERRL Ears: Normal External Exam Nose: Nasal Tenderness, Nasal Swelling Throat/Mouth: Normal Inspection Head: Facial Tenderness Respiratory/Chest: No Respiratory Distress Cardiovascular: Normal Peripheral Pulses Skin: Wound/Incision (4.3cm ) Front/Back Body Diagram: 1 - 4.3cm lesion at a right angle 2.9, then 1.4cm ED SKIN PROCEDURES - Laceration/Wound Repair Left Upper Face Lac/Wound length In cm: 4.3 Appearance: Superficial Distal NVT: Neuro & Vascular Intact, No Tendon Injury Anesthetic Type: Local Local Anesthesia - Lidocaine (Xylocaine): 1% Plain Local Anesthetic Volume: Other (7cc) Exploration/Debridement/Repair: Wound Explored Closed with: Sutures Suture Size: other (5-0) # of Sutures: 10 Suture Type: Nylon, Interrupted, Simple Course - Vital Signs Last Recorded V/S: Last Vital Signs Temp 36.9 C 04/22/17 02:50 Pulse 95 04/22/17 02:50 Resp 20 04/22/17 02:50 BP 98/59 L 04/22/17 02:50 Pulse Ox Departure - Departure Time of Disposition: 04:15 Disposition: Home, Self-Care 01 Condition: Fair Clinical Impression: Laceration - Discharge Information Instructions: Laceration Care, Adult Referrals: PCP,None [Primary Care Provider] - Forms: ED Department Discharge Care Plan Goals: Have sutures removed in 5 days. Keep clean and dry - Assessment/Plan Plan: Counseled on wound care, discussed careful monitoring and care and prevention of dehiscence. F/u as directed and f/u at [facility] as routine. Suture removal in 5- 7 days.
== END 2017-04-22 03:10 | disposition home or self-care (01) ==
LOC: LB.ED 01:12
DX: S01.81XA Laceration without foreign body of other part of head, initial encounter (principal); I13.0 Hypertensive heart and chronic kidney disease with heart failure and stage 1 through stage 4 chronic kidney disease, or unspecified chronic kidney disease; I50.9 Heart failure, unspecified; N18.9 Chronic kidney disease, unspecified; J45.909 Unspecified asthma, uncomplicated; F32.9 Major depressive disorder, single episode, unspecified; Z79.899 Other long term (current) drug therapy; Z79.01 Long term (current) use of anticoagulants; Z88.8 Allergy status to other drugs, medicaments and biological substances; M19.90 Unspecified osteoarthritis, unspecified site; Z87.891 Personal history of nicotine dependence; W01.198A Fall on same level from slipping, tripping and stumbling with subsequent striking against other object, initial encounter
CPT/HCPCS: 12013; 99284; A0425; A0429; 99282

== ENCOUNTER 2017-05-15 20:28 | Emergency (ER) | payer MEDICARE, MEDICAID ==
--- NOTE | 2017-05-15 20:57 | EDM.PDOC ---
ED HPI GENERAL MEDICAL PROBLEM - General Chief Complaint: General Stated Complaint: dehydration Time Seen by Provider: 05/15/17 20:40 Source of Information: Reports: Patient History Limitations: Reports: No Limitations - History of Present Illness INITIAL COMMENTS - FREE TEXT/NARRATIVE: According to patient he claims he has not been feeling well for past 3-4 hrs now. Claims feels tired and weak. No nausea.Had an episode of vomiting 4 days ago. No chest pain, SOB,. Spends most of his time in bed. He claims that he has gained weight over past few days, but has not checked his weight recently. No cough, wheezing. No fever or chills. No other complaints Onset: Today Onset Date: 05/15/17 Onset Time: 17:00 Associated Symptoms: Reports: Weakness. Denies: Confusion, Chest Pain, Cough, Fever/Chills, Loss of Appetite, Nausea/Vomiting, Rash, Shortness of Breath, Syncope - Related Data Allergies Allergy/AdvReac Type Severity Reaction Status Date / Time heparin AdvReac Other Verified 04/22/17 03:43 Home Meds: Home Meds Albuterol [Ventolin HFA] 1 puff .XX Q4H PRN 04/14/17 [History] Allopurinol [Zyloprim] 100 mg PO BID 04/14/17 [History] Benzonatate 100 mg PO TID 04/14/17 [History] Bisacodyl [Dulcolax] 5 mg PO DAILY PRN 04/14/17 [History] Cyanocobalamin (Vitamin B-12) [B-12] 1,000 mcg PO DAILY 04/14/17 [History] Ferrous Sulfate [Iron] 325 mg PO BID 04/14/17 [History] Fluticasone/Salmeterol [Advair 250-50 Diskus] 2 inh PO BID 04/14/17 [History] Gabapentin [Neurontin] 300 mg PO DAILY 04/14/17 [History] Hydrocodone/Acetaminophen [Hydrocodon-Acetaminophen 5-325] 1 tab PO Q4H PRN 06/21 [History] Ipratropium/Albuterol Sulfate [Iprat-Albut 0.5-3(2.5) mg/3 ml] 3 ml IH Q6H PRN 04/14/17 [History] Melatonin 6 mg PO BEDTIME 04/14/17 [History] Metolazone 5 mg PO .MON .FRI 04/14/17 [History] Midodrine 15 mg PO TIDAC 04/14/17 [History] Pantoprazole Sodium 40 mg PO DAILY 04/14/17 [History] Potassium Chloride [K-Tab] 40 meq PO TID 04/14/17 [History] Torsemide 100 mg PO BID 04/14/17 [History] Warfarin [Coumadin] 2 mg PO DAILY 04/14/17 [History] atorvaSTATin Calcium [Atorvastatin Calcium] 40 mg PO DAILY 04/14/17 [History] traMADol HCl [Tramadol HCl] 50 mg PO BID PRN 04/14/17 [History] Sertraline [Zoloft] 12.5 mg PO DAILY 04/22/17 [History] Sildenafil [Revatio] 60 mg PO TID 04/22/17 [History] Past Medical History Cardiovascular History: Reports: Heart Failure, Hypertension, Prior Cardiac Arrest, SOB on Exertion Respiratory History: Reports: Asthma, COPD, Other (See Below) Other Respiratory History: Hx of thrombolectomy in [place] Genitourinary History: Reports: Chronic Renal Insuffiency Musculoskeletal History: Reports: Arthritis Psychiatric History: Reports: Depression Hematologic History: Reports: Bleeding Disorder, Iron Deficiency Immunologic History: Reports: Other (See Below) Other Immunologic History: Lupus Dermatologic History: Reports: Urticaria - Infectious Disease History Infectious Disease History: Reports: Chicken Pox Social & Family History - Family History Family Medical History: Unobtainable - Tobacco Use Smoking Status *Q: Former Smoker Years of Tobacco use: 20 Packs/Tins Daily: 1 Used Tobacco, but Quit: No Second Hand Smoke Exposure: No - Caffeine Use Caffeine Use: Reports: Soda - Recreational Drug Use Recreational Drug Use: No ED ROS GENERAL - Review of Systems Review Of Systems: See Below Constitutional: Reports: Weakness. Denies: Fever, Chills, Night Sweats, Diaphoresis HEENT: Denies: Sinus Problem, Throat Pain, Throat Swelling Respiratory: Denies: Shortness of Breath, Cough, Sputum Cardiovascular: Denies: Chest Pain, Lightheadedness GI/Abdominal: Reports: Vomiting. Denies: Abdominal Pain, Nausea Musculoskeletal: Reports: Back Pain. Denies: Neck Pain, Arm Pain, Foot Pain, Joint Pain, Joint Swelling Skin: Denies: Jaundice, Mottled, Bruising, Pruritis, Rash, Erythema ED EXAM, GENERAL - Physical Exam Exam: See Below Exam Limited By: No Limitations General Appearance: Alert, WD/WN, No Apparent Distress, Other (Ill appearing male) Eye Exam: Bilateral Eye: EOMI, PERRL Ears: Normal External Exam, Normal Canal, Hearing Grossly Normal, Normal TMs Ear Exam: Bilateral Ear: Auricle Normal, Canal Normal, TM normal Nose: Normal Inspection, Normal Mucosa, No Blood Throat/Mouth: Normal Inspection, Normal Lips, Normal Teeth, Normal Gums, Normal Oropharynx, Normal Voice, No Airway Compromise Head: Atraumatic, Normocephalic Neck: Normal Inspection, Supple, Non-Tender, Full Range of Motion Respiratory/Chest: No Respiratory Distress, Lungs Clear, Normal Breath Sounds, No Accessory Muscle Use, Chest Non-Tender Cardiovascular: Normal Peripheral Pulses, No Gallop, No JVD, No Murmur, No Rub, Tachycardia GI/Abdominal: Normal Bowel Sounds, Soft, Non-Tender, No Organomegaly, No Distention, No Abnormal Bruit, No Mass Back Exam: Normal Inspection, Full Range of Motion Extremities: Pedal Edema (3+ pitting type) Skin Exam: Warm, Intact, Other (scarring of the skin over the legs from chronci healed wounds. 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 But he does not appear in distress of any kind. On cafeteria monitor it does appear like monomorphic Narrow QRS tachycardia with rate for 140 -150s, with stable vitals. Considering patient complex cardiac history. I did order cbc, CMP, Topronin, BNP, PT and INR. All the lab [place]. [place] [address], Trop of 0.106, BUN 47 Creat is 2.76 , Sodium of 123, with potassium of 6.1, INR of 9.5 and PT of 105 and PTT 63. Pt did receive 4 chewable aspirin. Once I had the report available, I did contact [facility], as most of patient care is through [facility] due to his complex medical history. I did discuss patient's finding with Dr. Bull the audiometric technician promotion manager. Her recommendation ws to try adenosine 1 dose to see if this is PSVT versus wide complex tachycardia. We did try adenosine 6mg IV using left anticubital vein, with 100 IV flush. There was no pause seen, and pt continued to stay in tachycardia. Pt probably has wide complex tachycardia. I did contact Dr. Bull after adenosine and discussed the findings. Dr. Bull's advised was to start patient on amiodarone drip and send patient down to [facility]. I did discuss the other lab abnormalities with Dr. Bull. Her recommendation was to have normal saline at 50cc and all the other abnormal labs would be corrected once patient is down at [facility]. Pt's Heart rate is down in 90s and appears to be in atrial fibrillation rhythm at the time of transfer. Last BP was99/60mmhg. Pt is awake and alert and not in any discomfort at the time of transfer. Further care per Dr. Bull. Last Recorded V/S: Last Vital Signs Temp 98.6 F 05/15/17 21:34 Pulse 152 H 05/15/17 21:34 Resp 14 05/15/17 21:34 BP 98/54 L 05/15/17 21:34 Pulse Ox 95 05/15/17 21:34 - Orders/Labs/Meds Orders: Active Orders 24 hr Category Date Time Status EKG Documentation Completion [RC] ASDIRECTED Care 05/15/17 21:00 Active Chest 1V Frontal [CR] Stat Exams 05/15/17 21:02 Taken Labs: Laboratory Tests 05/15/17 05/15/17 05/15/17 Range/Units 21:15 21:15 21:15 WBC 4.2 D (4.0-11.0) K/uL RBC 2.79 L (4.50-6.50) M/uL Hgb 8.9 L (13.0-18.0) g/dL Hct 26.6 L (40.0-54.0) % MCV 95 (76-96) fL MCH 31.9 (27.0-32.0) pg MCHC 33.5 (31.0-35.0) g/dL RDW 20.2 H (11.0-16.0) % Plt Count 110 L (150-400) K/uL Neut % (Auto) 71.0 H (45.0-70.0) % Lymph % (Auto) 11.8 L (20.0-40.0) % [place] % (Auto) 13.9 H (3.0-10.0) % Eos % (Auto) 0.7 L (1.0-5.0) % Baso % (Auto) 2.6 H (0.0-0.5) % Neut # (Auto) 3.00 (2.00-7.50) K/uL Lymph # (Auto) 0.50 L (1.50-4.00) K/uL [place] # (Auto) 0.59 (0.20-0.80) K/uL Eos # (Auto) 0.03 L (0.04-0.40) K/uL Baso # (Auto) 0.11 H (0.02-0.10) K/uL PT 105.3 H D (9.0-11.5) sec INR 9.5 H* D (1.0-3.5) APTT 63.5 H (27.0-35.0) SECONDS Sodium 123 L (136-145) mmol/L Potassium 6.1 H* D (3.5-5.1) mmol/L Chloride 93 L (98-107) mmol/L Carbon Dioxide 21.5 D (21.0-32.0) mmol/L Anion Gap 14.6 (5.0-15.0) mmol/L BUN 47 H D (8-26) mg/dL Creatinine 2.76 H (0.70-1.30) mg/dL Est Cr Clr Drug Dosing TNP Estimated GFR (MDRD) 25 L (>60) MLS/MIN BUN/Creatinine Ratio 17.0 (6-25) Glucose 101 H (74-100) mg/dL Calcium 8.6 (8.5-10.1) mg/dL Total Bilirubin 2.2 H D (0.0-1.0) mg/dL AST 29 (15-37) U/L ALT 19 (12-78) U/L Alkaline Phosphatase 290 H (46-116) U/L Troponin I 0.104 H* D (0.000-0.060) ng/mL B-Natriuretic Peptide (0-125) pg/mL Total Protein 6.7 (6.4-8.2) g/dL Albumin 3.1 L (3.4-5.0) g/dL Globulin 3.6 (2.2-4.2) g/dL Albumin/Globulin Ratio 0.9 (0.8-2.0) 05/15/17 Range/Units 21:15 WBC (4.0-11.0) K/uL RBC (4.50-6.50) M/uL Hgb (13.0-18.0) g/dL Hct (40.0-54.0) % MCV (76-96) fL MCH (27.0-32.0) pg MCHC (31.0-35.0) g/dL RDW (11.0-16.0) % Plt Count (150-400) K/uL Neut % (Auto) (45.0-70.0) % Lymph % (Auto) (20.0-40.0) % [place] % (Auto) (3.0-10.0) % Eos % (Auto) (1.0-5.0) % Baso % (Auto) (0.0-0.5) % Neut # (Auto) (2.00-7.50) K/uL Lymph # (Auto) (1.50-4.00) K/uL [place] # (Auto) (0.20-0.80) K/uL Eos # (Auto) (0.04-0.40) K/uL Baso # (Auto) (0.02-0.10) K/uL PT (9.0-11.5) sec INR (1.0-3.5) APTT (27.0-35.0) SECONDS Sodium (136-145) mmol/L Potassium (3.5-5.1) mmol/L Chloride (98-107) mmol/L Carbon Dioxide (21.0-32.0) mmol/L Anion Gap (5.0-15.0) mmol/L BUN (8-26) mg/dL Creatinine (0.70-1.30) mg/dL Est Cr Clr Drug Dosing Estimated GFR (MDRD) (>60) MLS/MIN BUN/Creatinine Ratio (6-25) Glucose (74-100) mg/dL Calcium (8.5-10.1) mg/dL Total Bilirubin (0.0-1.0) mg/dL AST (15-37) U/L ALT (12-78) U/L Alkaline Phosphatase (46-116) U/L Troponin I (0.000-0.060) ng/mL B-Natriuretic Peptide 84190 H D (0-125) pg/mL Total Protein (6.4-8.2) g/dL Albumin (3.4-5.0) g/dL Globulin (2.2-4.2) g/dL Albumin/Globulin Ratio (0.8-2.0) Meds: Medications Discontinued Medications Generic Name Dose Route Start Last Admin Trade Name Freq PRN Reason Stop Dose Admin Adenosine Confirm 05/15/17 22:20 Adenocard Administered 05/15/17 22:21 Dose 24 mg .ROUTE .STK-MED ONE Aspirin 364 mg 05/15/17 21:25 05/15/17 21:00 Aspirin PO 05/15/17 21:26 364 mg ONETIME ONE Administration Departure - Departure Time of Disposition: 11:30 Disposition: DC/Tfer to Acute Hospital 02 Condition: Fair Clinical Impression: CHF (congestive heart failure), NYHA class III, Wide QRS ventricular tachycardia, Hyponatremia, Hyperkalemia, Decreased renal function - Discharge Information Referrals: PCP,None [Primary Care Provider] - Forms: ED Department Discharge - Problem List & Annotations (1) CHF (congestive heart failure), NYHA class III SNOMED Code(s): 956103005, 773390453 Code(s): I50.9 - HEART FAILURE, UNSPECIFIED Status: Acute Current Visit: Yes (2) Decreased renal function Status: Acute Current Visit: Yes (3) Hyperkalemia SNOMED Code(s): 96228335 Code(s): E87.5 - HYPERKALEMIA Status: Acute Current Visit: Yes (4) Hyponatremia SNOMED Code(s): 19506513 Code(s): E87.1 - HYPO-OSMOLALITY AND HYPONATREMIA Status: Acute Current Visit: Yes (5) Wide QRS ventricular tachycardia SNOMED Code(s): 147504143 Code(s): I47.2 - VENTRICULAR TACHYCARDIA Status: Acute Current Visit: Yes - Problem List Review Problem List Initiated/Reviewed/Updated: Yes - My Orders Last 24 Hours: My Active Orders 05/15/17 21:00 EKG Documentation Completion [RC] ASDIRECTED 05/15/17 21:02 Chest 1V Frontal [CR] Stat - Assessment/Plan Last 24 Hours: My Active Orders 05/15/17 21:00 EKG Documentation Completion [RC] ASDIRECTED 05/15/17 21:02 Chest 1V Frontal [CR] Stat Assessment:: CHF Wide QRS tachycardia Hyponatremia Hyperkalemia Overtherapeutic on coagulation Altered renal function Plan: Pt does appear ill. But he does not appear in distress of any kind. On cafeteria monitor it does appear like monomorphic Narrow QRS tachycardia with rate for 140 -150s, with stable vitals. Considering patient complex cardiac history. I did order cbc, CMP, Topronin, BNP, PT and INR. All the lab work [place]. [place] [address], Trop of 0.106, BUN 47 Creat is 2.76 , Sodium of 123, with potassium of 6.1, INR of 9.5 and PT of 105 and PTT 63. Pt did receive 4 chewable aspirin. Once I had the report available, I did contact [facility], as most of patient care is through [facility] due to his complex medical history. I did discuss patient's finding with Dr. Bull the audiometric technician promotion manager. Her recommendation ws to try adenosine 1 dose to see if this is PSVT versus wide complex tachycardia. We did try adenosine 6mg IV using left anticubital vein, with 100 IV flush. There was no pause seen, and pt continued to stay in tachycardia. Pt probably has wide complex tachycardia. I did contact Dr. Bull after adenosine and discussed the findings. Dr. Bull's advised was to start patient on amiodarone drip and send patient down to [facility]. I did discuss the other lab abnormalities with Dr. Bull. Her recommendation was to have normal saline at 50cc and all the other abnormal labs would be corrected once patient is down at [facility]. Pt's Heart rate is down in 90s and appears to be in atrial fibrillation rhythm at the time of transfer. Last BP was 99/60mmhg. Pt is awake and alert and not in any discomfort at the time of transfer. Further care per Dr. Bull.
[2017-05-15] MEDS ORDERED: Aspirin 81 MG Tab.Chew PO ONE (21:25)
[2017-05-15] MEDS ORDERED: Adenosine 12 MG/4 ML SDV ONE (22:20)
[2017-05-15] MEDS ORDERED: Adenosine 12 MG/4 ML SDV IVPUSH ONE (22:30)
[2017-05-16] MEDS ORDERED: Amiodarone 150 MG in Dextrose 5% in Water 100 ML IV SCH ×2 (00:30)
[2017-05-16 01:05] VITALS: BP 98/63
[2017-05-16] MEDS ORDERED: Sodium Chloride 0.9% 1,000 ML IV SCH (01:15)
--- NOTE | 2017-05-16 09:36 | CR ---
DATE OF SERVICE: 05/15/17 CLINICAL DATA: not feeling well AP CHEST: Comparison is made to a prior exam dated 07/16/12. The patient is status post median sternotomy. There is a device overlying the left lower chest. The heart is enlarged. There is prominence of the proximal pulmonary vasculature, suggesting pulmonary venous congestion. The lungs are clear. No pneumothorax. No pleural effusions. No other significant findings. [id number] MTDD
== END 2017-05-15 23:15 ==
LOC: LB.ED 20:28
DX: I13.0 Hypertensive heart and chronic kidney disease with heart failure and stage 1 through stage 4 chronic kidney disease, or unspecified chronic kidney disease (principal); I50.9 Heart failure, unspecified; E87.5 Hyperkalemia; I47.2 Ventricular tachycardia; E87.1 Hypo-osmolality and hyponatremia; N18.9 Chronic kidney disease, unspecified; J45.909 Unspecified asthma, uncomplicated; I25.2 Old myocardial infarction; M19.90 Unspecified osteoarthritis, unspecified site; F32.9 Major depressive disorder, single episode, unspecified; Z88.8 Allergy status to other drugs, medicaments and biological substances; Z79.899 Other long term (current) drug therapy; Z79.01 Long term (current) use of anticoagulants; Z87.891 Personal history of nicotine dependence
CPT/HCPCS: 36415; 71010; 80053; 83880; 84484; 85025; 85610; 85730; 93005; 96374; 99284; 99285; A0425; A0429; A9270; J0153; J0282; J7040; J7060

== ENCOUNTER 2017-06-19 13:16 | Emergency (ER) | payer MEDICARE, MEDICAID ==
[2017-06-19] MEDS ORDERED: Sodium Chloride 0.9% 1,000 ML IV SCH (13:45)
[2017-06-19] MEDS ORDERED: Midazolam 1 MG/ML 5 ML SDV ONE (14:00)
[2017-06-19] MEDS ORDERED: Succinylcholine 200 MG/10 ML MDV ONE (14:00)
--- NOTE | 2017-06-19 14:41 | EDM.PDOC ---
ED HPI GENERAL MEDICAL PROBLEM - General Stated Complaint: unresponsive Time Seen by Provider: 06/19/17 13:20 Source of Information: Reports: Patient, EMS, Family History Limitations: Reports: No Limitations - History of Present Illness INITIAL COMMENTS - FREE TEXT/NARRATIVE: According to patient's . He has been confused and hallucinating on and off for past 4 days. She claims she is not sure why. But today, she was getting ready to take him down to [facility] as he had appointment tomorrow, and when she went into his room, he was found unresponsive in the room, he was breathing , but not responding to her. She did call EMT immediately. When EMT went to the scene, patient was unresponsive, His BP was 80/50mmhg. Patient was not in distress , but unresponsive to verbal commands. Also there wa a large puddle of foul smelling tarry sticky stool around his bottom. In the emergency room, Pt is breathing at rate of 14-16/minutes, he only responds to calling his name by moaning.But is not moving. Does respond to deep pain stimuli vaguely. appears pale. - Related Data Allergies Allergy/AdvReac Type Severity Reaction Status Date / Time heparin AdvReac Other Verified 05/16/17 00:24 Home Meds: Home Meds Albuterol [Ventolin HFA] 1 puff .XX Q4H PRN 04/14/17 [History] Allopurinol [Zyloprim] 100 mg PO BID 04/14/17 [History] Benzonatate 100 mg PO TID 04/14/17 [History] Bisacodyl [Dulcolax] 5 mg PO DAILY PRN 04/14/17 [History] Cyanocobalamin (Vitamin B-12) [B-12] 1,000 mcg PO DAILY 04/14/17 [History] Ferrous Sulfate [Iron] 325 mg PO BID 04/14/17 [History] Fluticasone/Salmeterol [Advair 250-50 Diskus] 2 inh PO BID 04/14/17 [History] Gabapentin [Neurontin] 300 mg PO DAILY 04/14/17 [History] Hydrocodone/Acetaminophen [Hydrocodon-Acetaminophen 5-325] 1 tab PO Q4H PRN 06/21 [History] Ipratropium/Albuterol Sulfate [Iprat-Albut 0.5-3(2.5) mg/3 ml] 3 ml IH Q6H PRN 04/14/17 [History] Melatonin 6 mg PO BEDTIME 04/14/17 [History] Metolazone 5 mg PO .MON .FRI 04/14/17 [History] Midodrine 15 mg PO TIDAC 04/14/17 [History] Pantoprazole Sodium 40 mg PO DAILY 04/14/17 [History] Potassium Chloride [K-Tab] 40 meq PO TID 04/14/17 [History] Torsemide 100 mg PO BID 04/14/17 [History] Warfarin [Coumadin] 2 mg PO DAILY 04/14/17 [History] atorvaSTATin Calcium [Atorvastatin Calcium] 40 mg PO DAILY 04/14/17 [History] traMADol HCl [Tramadol HCl] 50 mg PO BID PRN 04/14/17 [History] Sertraline [Zoloft] 12.5 mg PO DAILY 04/22/17 [History] Sildenafil [Revatio] 60 mg PO TID 04/22/17 [History] Past Medical History Cardiovascular History: Reports: Heart Failure, Hypertension, Prior Cardiac Arrest, SOB on Exertion Respiratory History: Reports: Asthma, COPD, Other (See Below) Other Respiratory History: Hx of thrombolectomy in [place] Genitourinary History: Reports: Chronic Renal Insuffiency Musculoskeletal History: Reports: Arthritis Psychiatric History: Reports: Depression Hematologic History: Reports: Bleeding Disorder, Iron Deficiency Immunologic History: Reports: Other (See Below) Other Immunologic History: Lupus Dermatologic History: Reports: Urticaria - Infectious Disease History Infectious Disease History: Reports: Chicken Pox Social & Family History - Family History Family Medical History: Unobtainable - Tobacco Use Smoking Status *Q: Former Smoker Years of Tobacco use: 20 Packs/Tins Daily: 1 Used Tobacco, but Quit: No Second Hand Smoke Exposure: No - Caffeine Use Caffeine Use: Reports: Soda - Recreational Drug Use Recreational Drug Use: No ED ROS GENERAL - Review of Systems Review Of Systems: Unable To Obtain (due to patient unresponsive) ED EXAM, GENERAL - Physical Exam Exam: See Below Exam Limited By: Other (unresponsive) General Appearance: Other (unresponsive and pale appearance. there is balck tarry foul smelling stool smeared in the perineal area.) Eye Exam: Bilateral Eye: Abnormal Pupil, Conjunctival Injection (pale ocnjucntiva), EOMI Ears: Normal External Exam Ear Exam: Bilateral Ear: TM normal Nose: Normal Inspection, Normal Mucosa, No Blood Throat/Mouth: Normal Inspection, Normal Lips, Other (poor oral hygiene) Head: Atraumatic, Normocephalic Neck: Normal Inspection, Supple Respiratory/Chest: Lungs Clear, Normal Breath Sounds. No: Crackles, Wheezing, Accessory Muscle Use Cardiovascular: Normal Peripheral Pulses, No Gallop, No JVD, Tachycardia. No: Irregularly Irregular Peripheral Pulses: 1+: Posterior Tibial (L), Posterior Tibial (R), 2+: Carotid ( L), Carotid (R), Radial (L), Radial (R) GI/Abdominal: Normal Bowel Sounds, Soft, Non-Tender, No Organomegaly, No Distention, No Abnormal Bruit, No Mass Rectal (Males) Exam: Normal Exam, Normal Rectal Tone, Black Stool Extremities: Other (old healed scars over legs with chronic congestion) Neurological: Unresponsive Skin Exam: Warm EKG INTERPRETATION EKG Date: 06/19/17 Time: 13:45 Rhythm: NSR P-Wave: Present QRS: Wide EKG Interpretation Comments: Pt has chronic wide QRS rhythm, no new changes compared to his recent EKG from May 2017 Course - Vital Signs Text/Narrative:: Pt was unresponsive on arrival to emergency room,other than only a little moaning to calling his name. He is not responding to deep pain stimulus. he does appear pale, and has large black tarry stool. Pt did get 2 large bore IV. He did receive normal saline bolus of 500 cc. Labs were ordered. he was started on 2 units of compatible blood immediately, even before the CBC was available. Also his INR was 8, he has been on coumadin 1mg daily according to his . his last INR on 06/06/17 was 2.6. Pt has been over therapeutic on his coumadin, which could be the cause of his GI bleed, he did receive 5mg of subcutaneous Vit K immediately. EKG done shows wide QRS tachycardia. Meanwhile while waiting for rest of the lab work and also I did order Ct scan of Abdomen and pelvis. which does not show any retroperitoneal bleed or active blood collection in the abdomen or pelvis. I did discuss the results with patient's , patient hemoglobin was 6.1 and his INR is 8 , his creat is up from 3.3 to 4.64 today BUN of 172 could be secondary to GI bleed. His sodium is low at 123. very mild elevation of troponin ( which could be related to his poor GFR and anemia induced Cardiac injury). Considering patient condition and his multiple comorbid condition's did discuss the poor outcome. Pt's prefer's him intubated and sent down to [place] as most of his care is done down at [facility]. At this point, I did contact [facility] and discuss patient with Dr. Chi, the hospitalist production floater. Per Dr. Chi's request FFP 1 unit was started and also patient received 5mg Vit K IV. He did agree to accept the patient. Apparently during patient's visit on Jun 03 2017, pt was on Palliative care and patient had signed DNR papers. But today, claims that patient was confused when he was down at [place] and was not able to make right decision then, so everything has to go through her making the decision, as she is the power of health care attorney. Dr. Chi did agree to accept the patient. Considering that patient is unresponsive he definitely needs to be intubate for the transfer. Which I did discuss with patient's spouse. She prefer him to be intubated and sent to [place]. Also She wants patient intubated until she is down at [facility]. Pt was intubated , by me by RSI, and intubation went easy. Chest Xray done, post intubation, ET tube is in place. Air ambulance was arranged through [facility], who did come and take patient to [facility] by fixed wing flight. - Orders/Labs/Meds Orders: Active Orders 24 hr Category Date Time Status Abdomen Pelvis wo Cont [CT] Stat Exams 06/19/17 13:43 Taken INR,PT,PROTHROMBIN TIME [COAG] Stat Lab 06/19/17 13:52 Received PTT,PARTIAL THROMBOPLSTIN TIME [COAG] Stat Lab 06/19/17 13:52 Received RED BLOOD CELLS LP [BBK] Stat Lab 06/19/17 13:52 Received TYPE AND SCREEN [BBK] Stat Lab 06/19/17 13:52 Received Sodium Chloride 0.9% [Normal Saline] 1,000 ml Med 06/19/17 13:45 Active IV ASDIRECTED Transfuse Red Blood Cells [COMM] Stat Oth 06/19/17 13:49 Ordered Medication Orders Sodium Chloride (Normal Saline) 1,000 mls @ 500 mls/hr IV ASDIRECTED [facility] Labs: Laboratory Tests 06/19/17 06/19/17 Range/Units 13:52 13:52 WBC 6.0 (4.0-11.0) K/uL RBC 1.74 L (4.50-6.50) M/uL Hgb 6.1 L* D (13.0-18.0) g/dL Hct 17.9 L* D (40.0-54.0) % MCV 103 H (76-96) fL MCH 35.1 H (27.0-32.0) pg MCHC 34.1 (31.0-35.0) g/dL RDW 22.0 H (11.0-16.0) % Plt Count 144 L (150-400) K/uL MPV 11.8 H (6.0-10.0) fL Neut % (Auto) 82.1 H (45.0-70.0) % Lymph % (Auto) 9.2 L (20.0-40.0) % [place] % (Auto) 7.7 (3.0-10.0) % Eos % (Auto) 0.0 L (1.0-5.0) % Baso % (Auto) 1.0 H (0.0-0.5) % Neut # (Auto) 4.94 (2.00-7.50) K/uL Lymph # (Auto) 0.55 L (1.50-4.00) K/uL [place] # (Auto) 0.46 (0.20-0.80) K/uL Eos # (Auto) 0.00 L (0.04-0.40) K/uL Baso # (Auto) 0.06 (0.02-0.10) K/uL Sodium 123 L (136-145) mmol/L Potassium 5.3 H D (3.5-5.1) mmol/L Chloride 89 L* (98-107) mmol/L Carbon Dioxide 20.6 L D (21.0-32.0) mmol/L Anion Gap 18.7 H (5.0-15.0) mmol/L BUN 172 H* D (8-26) mg/dL Creatinine 4.64 H* D (0.70-1.30) mg/dL Est Cr Clr Drug Dosing TNP Estimated GFR (MDRD) 14 L (>60) MLS/MIN BUN/Creatinine Ratio 37.1 H (6-25) Glucose 116 H D (74-100) mg/dL Calcium 8.5 (8.5-10.1) mg/dL Total Bilirubin 1.2 H (0.0-1.0) mg/dL AST 39 H (15-37) U/L ALT 22 (12-78) U/L Alkaline Phosphatase 184 H (46-116) U/L Troponin I 0.063 H* D (0.000-0.060) ng/mL Total Protein 5.8 L (6.4-8.2) g/dL Albumin 2.7 L (3.4-5.0) g/dL Globulin 3.1 (2.2-4.2) g/dL Albumin/Globulin Ratio 0.9 (0.8-2.0) Amylase 30 (25-115) U/L Meds: Medications Generic Name Dose Route Start Last Admin Trade Name Freq PRN Reason Stop Dose Admin Sodium Chloride 1,000 mls @ 500 mls/hr 06/19/17 13:45 Normal Saline IV ASDIRECTED DENISSE Discontinued Medications Generic Name Dose Route Start Last Admin Trade Name Freq PRN Reason Stop Dose Admin Phytonadione Confirm 06/19/17 14:14 Aquamephyton Administered 06/19/17 14:15 Dose 10 mg .ROUTE .STK-MED ONE Phytonadione 5 mg 06/19/17 14:13 Aquamephyton SUBCUT 06/19/17 14:14 ONETIME ONE Departure - Departure Time of Disposition: 16:00 Disposition: DC/Tfer to Acute Hospital 02 Condition: Poor Clinical Impression: Acute GI hemorrhage, Unresponsive, Anticoagulated on Coumadin, Chronic renal failure - Discharge Information Referrals: PCP,None [Primary Care Provider] - - Problem List & Annotations (1) Acute GI hemorrhage SNOMED Code(s): 57362279 Code(s): K92.2 - GASTROINTESTINAL HEMORRHAGE, UNSPECIFIED Status: Acute Current Visit: Yes (2) Anticoagulated on Coumadin SNOMED Code(s): 49775571 Code(s): Z51.81 - ENCOUNTER FOR THERAPEUTIC DRUG LEVEL MONITORING; Z79.01 - SENIOR LIVING (CURRENT) USE OF ANTICOAGULANTS Status: Acute Current Visit: Yes (3) Chronic renal failure SNOMED Code(s): 81041461 Code(s): N18.9 - CHRONIC KIDNEY DISEASE, UNSPECIFIED Status: Acute Current Visit: Yes (4) Unresponsive SNOMED Code(s): 052850109 Code(s): R41.89 - OTH SYMPTOMS AND SIGNS W COGNITIVE FUNCTIONS AND AWARENESS Status: Acute Current Visit: Yes - My Orders Last 24 Hours: My Active Orders 06/19/17 13:43 Abdomen Pelvis wo Cont [CT] Stat 06/19/17 13:45 Sodium Chloride 0.9% [Normal Saline] 1,000 ml IV ASDIRECTED 06/19/17 13:49 Transfuse Red Blood Cells [COMM] Stat 06/19/17 13:52 INR,PT,PROTHROMBIN TIME [COAG] Stat PTT,PARTIAL THROMBOPLSTIN TIME [COAG] Stat RED BLOOD CELLS LP [BBK] Stat TYPE AND SCREEN [BBK] Stat - Assessment/Plan Last 24 Hours: My Active Orders 06/19/17 13:43 Abdomen Pelvis wo Cont [CT] Stat 06/19/17 13:45 Sodium Chloride 0.9% [Normal Saline] 1,000 ml IV ASDIRECTED 06/19/17 13:49 Transfuse Red Blood Cells [COMM] Stat 06/19/17 13:52 INR,PT,PROTHROMBIN TIME [COAG] Stat PTT,PARTIAL THROMBOPLSTIN TIME [COAG] Stat RED BLOOD CELLS LP [BBK] Stat TYPE AND SCREEN [BBK] Stat Assessment:: Acute GI bleed, with Hemoglobin of 6.1 Unresponsiveness Overtherapeutic on coagulation CRF with acute deterioration of renal function Plan: Pt was unresponsive on arrival to emergency room,other than only a little moaning to calling his name. He is not responding to deep pain stimulus. he does appear pale, and has large black tarry stool. Pt did get 2 large bore IV. He did receive normal saline bolus of 500 cc. Labs were ordered. he was started on 2 units of compatible blood immediately, even before the CBC was available. Also his INR was 8, he has been on coumadin 1mg daily according to his . his last INR on 06/06/17 was 2.6. Pt has been over therapeutic on his coumadin, which could be the cause of his GI bleed, he did receive 5mg of subcutaneous Vit K immediately. EKG done shows wide QRS tachycardia. Meanwhile while waiting for rest of the lab work and also I did order Ct scan of Abdomen and pelvis. which does not show any retroperitoneal bleed or active blood collection in the abdomen or pelvis. I did discuss the results with patient's , patient hemoglobin was 6.1 and his INR is 8 , his creat is up from 3.3 to 4.64 today BUN of 172 could be secondary to GI bleed. His sodium is low at 123. very mild elevation of troponin ( which could be related to his poor GFR and anemia induced Cardiac injury). Considering patient condition and his multiple comorbid condition's did discuss the poor outcome. Pt's prefer's him intubated and sent down to [place] as most of his care is done down at [facility]. At this point, I did contact [facility] and discuss patient with Dr. Chi, the hospitalist production floater. Per Dr. Chi's request FFP 1 unit was started and also patient received 5mg Vit K IV. He did agree to accept the patient. Apparently during patient's visit on Jun 03 2017, pt was on Palliative care and patient had signed DNR papers. But today, claims that patient was confused when he was down at [place] and was not able to make right decision then, so everything has to go through her making the decision, as she is the power of health care attorney. Dr. Chi did agree to accept the patient. Considering that patient is unresponsive he definitely needs to be intubate for the transfer. Which I did discuss with patient's spouse. She prefer him to be intubated and sent to [place]. Also She wants patient intubated until she is down at [facility]. Pt was intubated , by me by RSI, and intubation went easy. Chest Xray done, post intubation, ET tube is in place. Air ambulance was arranged through [facility], who did come and take patient to [facility] by fixed wing flight.
--- NOTE | 2017-06-20 07:31 | CT ---
DATE OF SERVICE: 06/19/17 CLINICAL DATA: GI bleed UNENHANCED ABDOMEN AND PELVIC CT: Multislice acquisition through the abdomen and pelvis without IV or oral contrast was performed. The patient is status post median sternotomy. The heart is enlarged. There is a partially calcified mass within the left ventricle. This may be related to the prior surgery. No pericardial effusion. The unenhanced liver appears normal. The gallbladder is contracted. No calcified gallstones. The spleen appears normal. The pancreas appears normal. The right and left adrenals appear normal. The right and left kidneys appear normal. No nephrocalcinosis or nephrolithiasis. No hydronephrosis or hydroureter. The bladder is partially fluid filled and appears normal. There is an inferior vena cava filter in place. No free air. No free fluid. No dilated loops of bowel. No adenopathy. No aortic aneurysm. There is mild fat stranding in the region of the root of the mesentery. An active infectious or inflammatory process cannot be excluded. There is a small umbilical hernia containing fat. There is fluid adjacent to the right testicle consistent with a right hydrocele. There are minimally displaced fractures of the right 11th and 12th ribs. IMPRESSION: Multiple findings as discussed above. [id number] MTDD
--- NOTE | 2017-06-20 07:37 | CR ---
DATE OF SERVICE: 06/19/17 CLINICAL DATA: CHECK INTUBATION AP PORTABLE CHEST: Comparison is made to a prior exam dated 05/15/17. There is an endotracheal tube in place with its distal tip 2 cm above the therese. The patient is status post median sternotomy. The heart is enlarged. The pulmonary vasculature is prominent consistent with pulmonary venous congestion. There is increased density in the left lung base consistent with basilar atelectasis or infiltrate. The lungs are otherwise clear. No other significant findings. [id number] [facility]
== END 2017-06-19 15:50 ==
LOC: LB.ED 13:16
DX: K92.2 Gastrointestinal hemorrhage, unspecified (principal); J44.9 Chronic obstructive pulmonary disease, unspecified; F32.9 Major depressive disorder, single episode, unspecified; I13.0 Hypertensive heart and chronic kidney disease with heart failure and stage 1 through stage 4 chronic kidney disease, or unspecified chronic kidney disease; I50.9 Heart failure, unspecified; N18.9 Chronic kidney disease, unspecified; Z88.8 Allergy status to other drugs, medicaments and biological substances; Z79.899 Other long term (current) drug therapy; Z79.01 Long term (current) use of anticoagulants; Z87.891 Personal history of nicotine dependence
CPT/HCPCS: 31500; 36415; 36430; 71010; 74176; 80053; 82150; 84484; 85025; 85610; 85730; 86850; 86900; 86901; 86920; 86922; 93005; 96361; 96372; 96374; 96375; 99291; 99292; A0425; A0429; J0330; J2250; J3430; J7040; P9016; P9017; 99285-25; J3490